=== PATIENT | male | born 1985 | race Caucasian/White ===

== ENCOUNTER 2020-06-08 08:24 | Emergency (ER) | payer SELFPAY ==
[2020-06-08 08:37] VITALS: BP 123/74; PULSE 90; RESP 16; TEMP 37; O2SAT 100
--- NOTE | 2020-06-08 08:54 | ED.EAR ---
HPI - Ear Problem General Chief complaint: Ear Stated complaint: ear pain Time Seen by Provider: 06/08/20 08:40 Source: patient Mode of arrival: ambulatory Limitations: no limitations History of Present Illness HPI Narrative: Adrián Bustamante is a 34 yo male with no PMH comes to express care with pain in the right ear both internal and external x3 days. There is reddened and painful to touch; states he cleans his ear regularly with Q-tips, cannot lay on right side and states it hurts to move his jaw Related Data Allergies Allergy/AdvReac Type Severity Reaction Status Date / Time Yellow Hornet Allergy Severe Anaphylactic Uncoded 06/08/20 08:31 Shock Review of Systems Review of Systems: Narrative: CONSTITUTIONAL: Denies fever, chills, sweats. EYES: Denies visual changes, redness, discharge. ENT: Denies rhinorrhea, congestion, sore throat, right otalgia. X3 days CARDIOVASCULAR: Denies chest pain, palpitations, edema. RESPIRATORY: Denies dyspnea, wheezing, cough GASTROINTESTINAL: Denies abdominal pain, nausea, vomiting, diarrhea. GENITOURINARY: Denies dysuria, hematuria, abnormal discharge SKIN: Denies rash or itching. NEUROLOGIC: Denies numbness, or focal weakness. PSYCHIATRIC: Denies anxiety or depression. PMFSH Past Medical History Medical History No acute medical problems Family History Family History Mother Hypertension Social History Social History Smoking status: Current every day smoker Tobacco type: cigarettes Alcohol intake: former Comments At time of signature, I agree with nursing past medical, surgical, social and family history. There is no relevant family history pertinent to the presenting complaint. Exam Narrative: Exam Narrative: GENERAL: This is a well-nourished, well-developed patient, in mild distress. HEAD: normocephalic, atraumatic. EYES: Sclera clear/white. Vision is grossly intact. EARS: External ears normal, auditory canals clear and without drainage, right ear erythema with tenderness to touch white cotton packed against TM which appears to be intact as no drainage Hearing grossly intact. NOSE: External nose normal without nasal discharge, nares without redness, no rhinorrhea. THROAT: Mucous membranes moist, posterior pharynx pink NECK: Neck supple, non-tender CARDIOVASCULAR: Regular rate and rhythm without murmurs, gallops, or rubs. RESPIRATORY: Clear to auscultation. Breath sounds equal bilaterally. No wheezes, rales, or rhonchi. GASTROINTESTINAL: Abdomen soft, SKIN: warm, intact with no suspicious lesions or rash, good texture and turgor. NEURO: awake, alert, and oriented to person, place and time. There were no obvious focal neurologic abnormalities. Steady gait EXTREMITIES: Normal range of motion. BACK: Nontender without deformity Course Course Emergency Course: Comes to express care with right ear pain with tenderness Has cotton against right tympanic membrane, ear flush, cleared. Started on antibiotic eardrops with hydrocortisone Directions given for care Vital Signs Vital signs: Vital Signs Temperature 98.6 F 06/08/20 08:37 Pulse Rate 90 06/08/20 08:37 Respiratory Rate 16 06/08/20 08:37 Blood Pressure 123/74 06/08/20 08:37 Pulse Oximetry 100 06/08/20 08:37 Temperature 98.6 F 06/08/20 08:37 Pulse Rate 90 06/08/20 08:37 Respiratory Rate 16 06/08/20 08:37 Blood Pressure 123/74 06/08/20 08:37 Pulse Oximetry 100 06/08/20 08:37 Procedures FB Removal Ear Foreign Body #1: Foreign Body Removal Date: 06/08/20 Foreign Body Removal Time: 08:50 Location: ear canal (R) Foreign Body Suspected: other TM intact pre-procedure: yes Foreign Body Removed: yes ([place]) Foreign Body Removal Technique: irrigation Tympanic Me
== END 2020-06-08 09:05 | disposition home or self-care (01) ==
PROVIDERS: Emergency Provider Nurse Practitioner
DX: T16.1XXA Foreign body in right ear, initial encounter (principal); X58.XXXA Exposure to other specified factors, initial encounter; F17.210 Nicotine dependence, cigarettes, uncomplicated
CPT/HCPCS: 69200; 99213; G0463

== ENCOUNTER 2021-03-12 19:39 | Emergency (ER) | payer SELFPAY ==
[2021-03-12 19:42] VITALS: BP 111/68; PULSE 77; RESP 18; TEMP 36.9; O2SAT 100
--- NOTE | 2021-03-12 21:16 | ED.GENADULT ---
HPI - General Adult General Chief complaint: Unspecified Stated complaint: stung by 10 bees Time Seen by Provider: 03/12/21 21:06 History of Present Illness HPI narrative: Patient is a 35-year-old gentleman presents the emergency department with chief complaint of bee stings the patient reports that he was stung by approximately ten bees this afternoon and reports that he was concerned because he had a prior allergic reaction to a wasp sting which required him to have steroids. The patient states that he was extremely concerned about this and decided to immediately come to the emergency department as he has been sitting here in the emergency department he realized that he is doing much better at this time only has some slight itching and has no swelling of his tongue or mouth reports no airway compromise. Related Data Allergies Allergy/AdvReac Type Severity Reaction Status Date / Time Yellow Hornet Allergy Severe Anaphylactic Uncoded 03/12/21 20:57 Shock Review of Systems Review of Systems: A 10 system review of systems was completed on the patient and is negative except for what is stated in the HPI. Nursing and ancillary documentation was reviewed. PMFSH Past Medical History Medical History No acute medical problems Family History Family History Mother Hypertension Social History Social History Smoking status: Current every day smoker Tobacco type: cigarettes Alcohol intake: former Exam Narrative: GENERAL: Well-appearing, well-nourished, and in no acute distress. HEAD: Normocephalic, atraumatic. EYES: PERRLA and EOMI. ENT: Nares clear, no rhinorrhea or epistaxis. Mucous membranes moist. NECK: Supple. CHEST: Clear to auscultation. No respiratory distress. HEART: Regular rate and rhythm. No murmur heard. Normal peripheral pulses. ABDOMEN: Soft, nontender, nondistended, normal active bowel sounds. EXTREMITIES: Normal range of motion. No edema. SKIN: Warm, dry, no rash. Several small bee stings present on the skin and there is no large areas of urticaria there is no angioedema present NEURO: No focal deficits. Alert and oriented x3. PSYCH: Normal mood and affect. Course Vital Signs Vital signs: Vital Signs Temperature 36.9 C 03/12/21 19:42 Pulse Rate 77 03/12/21 19:42 Respiratory Rate 18 03/12/21 19:42 Blood Pressure 111/68 03/12/21 19:42 Pulse Oximetry 100 03/12/21 19:42 Temperature 36.9 C 03/12/21 19:42 Pulse Rate 77 03/12/21 19:42 Respiratory Rate 18 03/12/21 19:42 Blood Pressure 111/68 03/12/21 19:42 Pulse Oximetry 100 03/12/21 19:42 Medical Decision Making Vital Signs Vital Signs: Vital Signs Temperature 36.9 C 03/12/21 19:42 Pulse Rate 77 03/12/21 19:42 Respiratory Rate 18 03/12/21 19:42 Blood Pressure 111/68 03/12/21 19:42 Pulse Oximetry 100 03/12/21 19:42 Temperature 36.9 C 03/12/21 19:42 Pulse Rate 77 03/12/21 19:42 Respiratory Rate 18 03/12/21 19:42 Blood Pressure 111/68 03/12/21 19:42 Pulse Oximetry 100 03/12/21 19:42 Discharge Plan Discharge Clinical Impression: Bee sting Qualifiers: Encounter type: initial encounter Injury intent: accidental or unintentional Qualified Code(s): T63.441A - Toxic effect of venom of bees, accidental (unintentional), initial encounter Patient Disposition: Home, Self-Care Condition: Stable Instructions: Antibiotic Form, Insect Bite or Sting (ED) Prescriptions: New methylprednisolone [Medrol (Simone)] 4 mg tablets,dose pack See Rx Instructions .ROUTE .COMPLEX Qty: 21 RF: 0 No Action [id number] 3.5-10,000-1 mg/mL-unit/mL-% drops,suspension 4 drp RIGHTEAR Q8H 5 Days Qty: 10 RF: 0 Follow-up/Referrals: PHYSICIAN,SUPERVISOR [facility] [Primary Care Provider] - [facility]
[2021-03-12] MEDS: methylPREDNISolone SOD SUCC 125 MG VIAL IM (21:39)
== END 2021-03-12 21:41 | disposition home or self-care (01) ==
PROVIDERS: Emergency Provider Emergency Medicine
DX: T63.441A Toxic effect of venom of bees, accidental (unintentional), initial encounter (principal)
CPT/HCPCS: 96372; 99283; J2930

== ENCOUNTER 2023-01-14 12:57 | Emergency (ER) | payer SELFPAY ==
[2023-01-14 12:59] VITALS: BP 125/79; PULSE 87; RESP 18; TEMP 37.1; O2SAT 100
[2023-01-14 13:38] LABS: Basophils Absolute Auto 0.1 K/mm3 (0.0-0.1); Basophils Percent Auto 0.9 % (0.2-1.2); Eosinophils Absolute Auto 0.4 K/mm3 (0-0.3); Eosinophils Percent Auto 2.8 % (0-4.4); Hematocrit 47.2 % (42.0-52.0); Hemoglobin 15.8 g/dL (14.0-18.0); Immature Granulocyte Absolute 0.06 K/mm3 (0.00-0.031); Immature Granulocyte Percent A 0.4 % (0-0.5); Lymphocytes Absolute Auto 1.89 K/mm3 (0.9-3.2); Lymphocytes Percent Auto 13.5 % (18.3-44.2); Mean Corpuscular HGB Conc 33.5 g/dl (32-36); Mean Corpuscular Volume 92.5 fl (80-100); Monocytes Absolute Auto 0.9 K/mm3 (0.1-0.6); Monocytes Percent Auto 6.2 % (2.6-8.5); Neutrophils Absolute Auto 10.7 K/mm3 (1.3-6.7); Neutrophils Percent Auto 76.2 % (45.5-73.1); Platelet Count Result 223 k/mm3 (150-375); Red Cell Distribution Width 13.2 % (11.5-14.5)
--- NOTE | 2023-01-14 13:47 | ED.GENADULT ---
HPI - General Adult General Chief complaint: Skin/Abscess/Foreign Body Stated complaint: abscess Time Seen by Provider: 01/14/23 13:09 History of Present Illness HPI narrative: 37-year-old male presenting to the ED for evaluation of abscess on his right buttock. Patient states he began having symptoms a few days ago, tried squeezing it with no improvement and that the abscess has been worsening over the last few days. Patient states he is not diabetic. Patient has no prior history of significant abscesses. Patient has no prior history of Crohn's. 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 Related Data Allergies Allergy/AdvReac Type Severity Reaction Status Date / Time Yellow Hornet Allergy Severe Anaphylactic Uncoded 01/14/23 13:17 Shock Review of Systems Review of Systems: All systems reviewed & are unremarkable except as noted in HPI and below PMFSH Past Medical History Medical History No acute medical problems Family History Family History Mother Hypertension Social History Social History Smoking status: Current every day smoker Tobacco type: cigarettes Alcohol intake: former Exam Narrative: APPEARANCE: Well appearing, no pain, no distress, well-nourished. HEAD: normocephalic, atraumatic. EYES: PERRLA/EOMI, conjunctivae clear. NOSE: Normal no drainage NECK: Supple. No adenopathy, no masses. RESPIRATORY: Airway patent, respirations nonlabored. Clear to auscultation bilaterally, no rales, rhonchi, wheezing. CARDIOVASCULAR: Regular rate and rhythm without murmurs rubs or gallops. ABDOMINAL: Soft, nontender, nondistended, normal bowel sounds MUSCULOSKELETAL: Moves all extremities. Strength/ROM intact, No edema, No calf tenderness. NEURO: Alert. Cranial nerves II through XII intact. Grossly intact SKIN: Warm, dry. Normal Color Course Course Emergency Course: 37-year-old male presented ED for evaluation of a worsening abscess on his right buttock. Abscess did not encouraged on the perianal area. Patient does have a leukocytosis of 14.0. Patient CMP had no significant abnormalities. Abscess was drained and packed as described in the procedure note. Patient was started on clindamycin. Patient was provided outpatient follow-up with surgery. All question concerns were addressed. Patient was well-appearing at time of discharge. Vital Signs Vital signs: Vital Signs Temperature 98.7 F 01/14/23 12:59 Pulse Rate 87 01/14/23 12:59 Respiratory Rate 18 01/14/23 12:59 Blood Pressure 125/79 01/14/23 12:59 Pulse Oximetry 100 01/14/23 12:59 Oxygen Delivery Room Air 01/14/23 12:59 Temperature 98.7 F 01/14/23 12:59 Pulse Rate 87 01/14/23 12:59 Respiratory Rate 18 01/14/23 12:59 Blood Pressure 125/79 01/14/23 12:59 Pulse Oximetry 100 01/14/23 12:59 Oxygen Delivery Room Air 01/14/23 12:59 Procedures Abscess I/D other: Side (if applicable): right Local Anesthetic: lidocaine 1% Amount of anesthesia used (mL): 3 Technique: incised with #11 blade Amount of fluid expressed (mL): 3 Irrigation: Yes Packing used?: iodoform I&D Results: Pus Abcess I&D Additional Comments: Abscess was drained and packed with no complications. Medical Decision Making Differential Diagnosis Differential Diagnosis: Cellulitis, rectal abscess, perianal abscess Vital Signs Vital Signs: Vital Signs Temperature 98.7 F 01/14/23 12:59 Pulse Rate 87 01/14/23 12:59 Respiratory Rate 18 01/14/23 12:59 Blood Pressure 125/79 01/14/23 12:59 Pulse Oximetry 100 01/14/23 12:59 Oxygen Delivery Room Air 01/14/23 12:59 Temperature 98.7 F 01/14/23 12:59 Pulse Rate
[2023-01-14 13:50] LABS: Alanine Aminotransferase 23 U/L (6-50); Albumin Level 4.8 g/dL (3.5-5.1); Alkaline Phosphatase 64 U/L (38-126); Anion Gap 6 mmol/L (8-16); Aspartate Amino Transferase 24 U/L (17-59); Bilirubin,Total 0.8 mg/dL (0.2-1.3); Blood Urea Nitrogen 13 mg/dL (9-20); Calcium 9.1 mg/dL (8.4-10.2); Carbon Dioxide 28 mmol/L (22-30); Chloride 103 mmol/L (98-107); Estimated CRCL calculation 81 ml/min; Estimated Glomerular Filt Rate > 60; Glucose 81 mg/dL (65-110); Potassium 3.7 mmol/L (3.4-5.0); Sodium 137 mmol/L (137-145)
[2023-01-14] MEDS: CLINDAMYCIN HCL 150 MG CAP PO (13:51)
== END 2023-01-14 14:24 | disposition home or self-care (01) ==
PROVIDERS: Emergency Provider Emergency Medicine; PCP Emergency Medicine
DX: L02.31 Cutaneous abscess of buttock (principal); F17.210 Nicotine dependence, cigarettes, uncomplicated
CPT/HCPCS: 10061; 36415; 80053; 85025; 87070; 87205; 99283; A9270